=== PATIENT | female | born 1980 | race Caucasian/White ===

== ENCOUNTER 2016-08-30 11:39 | Day surgery (SDC) | payer MEDICAID ==
[~2016-08-30] VITALS: Ht 152.4 cm; Wt 54.5 kg
[~2016-08-30 11:39] MED LIST: ACET-1757 PO; DOCU-30 PO; FOLI0.8T2 PO; IBUP-1222 PO; MULT-658 PO; ONDA4TAB10 PO; OXYC-302 PO; PROM12.55 PO; iron PO
[2016-08-30 12:08] VITALS: BP 120/87
[2016-08-30] MEDS ORDERED: OXYTOCIN 10 UNITS/ML, 1ML ONE (13:00)
[2016-08-30] MEDS ORDERED: MISOPROSTOL 200 MCG TABLET ONE (13:00)
[2016-08-30] MEDS ORDERED: BUPIVACAINE/PF-EPI 0.25% 1:200K ONE (13:00)
[2016-08-30] MEDS ORDERED: SILVER NITRATE STICK TP ONE (13:00)
[2016-08-30] MEDS ORDERED: METHYLERGONOVINE 0.2 MG/ML IM ONE (13:00)
[2016-08-30] MEDS ORDERED: FENTANYL PF 100 MCG/2ML ONE ×2 (13:47→14:36)
[2016-08-30] MEDS ORDERED: MIDAZOLAM 1 MG/ML, 2ML ONE (13:48)
[2016-08-30] MEDS ORDERED: PROPOFOL 10 MG/ML, 20ML ONE (13:54)
[2016-08-30] MEDS ORDERED: MEPERIDINE/PF 25MG/0.5ML IVPush PRN (14:30)
[2016-08-30] MEDS ORDERED: ONDANSETRON 2MG/ML, 2ML IVPush PRN (14:30)
[2016-08-30] MEDS ORDERED: MIDAZOLAM 1 MG/ML, 2ML IV PRN (14:30)
[2016-08-30] MEDS ORDERED: hydrALAzine 20 MG/ML, 1ML IV PRN (14:30)
[2016-08-30] MEDS ORDERED: OXYcodone 5 MG/5 ML ORAL.SOL UDC PO PRN (14:30)
[2016-08-30] MEDS ORDERED: PROMETHAZINE 25 MG/ML, 1ML IV PRN (14:30)
[2016-08-30] MEDS ORDERED: LABETALOL 5MG/ML, 20ML IV PRN (14:30)
[2016-08-30] MEDS ORDERED: HYDROmorphone 1 MG/ML, 1ML IV PRN (14:30)
[2016-08-30] MEDS ORDERED: PLEASE ENTER HEIGHT AND WEIGHT MC SCH (14:30)
[2016-08-30] MEDS ORDERED: OXYcodone 5 MG/5 ML ORAL.SOL UDC ONE (14:36)
[2016-08-30] MEDS: FENTANYL PF 100 MCG/2ML IV PRN ×2 (14:45→14:54)
[2016-08-30 15:26] VITALS: BP 103/68
[2016-08-30] MEDS ORDERED: FENTANYL PF 100 MCG/2ML IV ONE (16:00)
[2016-08-30] MEDS ORDERED: ONDANSETRON 2MG/ML, 2ML IVPush ONE (16:00)
[2016-08-30] MEDS ORDERED: PROMETHAZINE 25 MG/ML, 1ML IM ONE (16:30)
[2016-08-30 19:16] VITALS: BP 95/61
[2016-08-30 19:59] VITALS: BP 99/66
== END 2016-08-30 20:30 | disposition home or self-care (01) ==
LOC: OR 11:39 → 4NOR 11:55 → OR 20:30
PROVIDERS: ATTEND Obstetrics & Gynecology
DX: O02.1 Missed abortion (principal); E21.3 Hyperparathyroidism, unspecified; Z87.442 Personal history of urinary calculi; G89.29 Other chronic pain; R07.81 Pleurodynia; Z93.6 Other artificial openings of urinary tract status; Z3A.01 Less than 8 weeks gestation of pregnancy
CPT/HCPCS: 36415; 59820; 86850; 86900; 86922; 87491; 87591; 88305; J2250; J2405; J2550; J2704; J2790; J3010; 86923; J2210; J2590

== ENCOUNTER 2016-09-01 09:18 | Emergency (ER) | payer MEDICAID ==
[~2016-09-01] VITALS: Ht 165.1 cm; Wt 55.0 kg
[2016-09-01] MEDS ORDERED: SODIUM CHLORIDE FLUSH 10ML SYR IVF ONE (10:00)
[2016-09-01] MEDS ORDERED: ONDANSETRON 2MG/ML, 2ML IVPush ONE (10:00)
[2016-09-01] MEDS ORDERED: SODIUM CHLORIDE 0.9% 1,000ML IVBOLUS ONE (10:00)
[2016-09-01] MEDS ORDERED: HYDROmorphone 1 MG/ML, 1ML ONE ×3 (10:15→11:39)
[2016-09-01] MEDS ORDERED: ONDANSETRON 2MG/ML, 2ML ONE (10:15)
[2016-09-01] MEDS: HYDROmorphone 1 MG/ML, 1ML IVPush PRN ×2 (10:19→10:48)
[2016-09-01 11:04] LABS: ASPARTATE AMINO TRANSFERASE 23 U/L (15-37); BLOOD UREA NITROGEN 10 mg/dL (7-18)
[2016-09-01] MEDS ORDERED: HYDROmorphone 2 MG/ML, 1ML IVPush ONE (12:00)
[2016-09-01 12:42] VITALS: BP 100/58
[2016-09-01] MEDS ORDERED: METRONIDAZOLE PMX 500MG/100ML 100 ML ONE (12:43)
[2016-09-01] MEDS ORDERED: METRONIDAZOLE PMX 500MG/100ML 100 ML IV ONE (13:00)
[2016-09-01] MEDS ORDERED: HYDROcodone/APAP 5/325 TABLET ONE (13:57)
[2016-09-01] MEDS ORDERED: HYDROcodone/APAP 5/325 TABLET PO ONE (14:00)
[2016-09-01] MEDS ORDERED: ONDANSETRON ODT 8 MG ONE (14:10)
[2016-09-01] MEDS ORDERED: ONDANSETRON ODT 8 MG PO ONE (14:30)
== END 2016-09-01 14:17 | disposition home or self-care (01) ==
LOC: ED 12:36
DX: R10.2 Pelvic and perineal pain (principal); F17.200 Nicotine dependence, unspecified, uncomplicated; Z87.442 Personal history of urinary calculi; Z93.6 Other artificial openings of urinary tract status; Z96.0 Presence of urogenital implants; Z88.6 Allergy status to analgesic agent
CPT/HCPCS: 36415; 51701; 74177; 80053; 81001; 83605; 85025; 85610; 87040; 87086; 96361; 96365; 96366; 96375; 96376; 99285; J1170; J2405; J7030; Q0162; P9612

== ENCOUNTER 2016-09-07 08:59 | Emergency (ER) | payer MEDICAID ==
[~2016-09-07] VITALS: Ht 152.4 cm; Wt 53.0 kg
[2016-09-07] MEDS ORDERED: SODIUM CHLORIDE 0.9% 1,000 ML IV ONE (09:25)
[2016-09-07] MEDS ORDERED: SODIUM CHLORIDE 0.9% 1,000ML IVBOLUS ONE (09:30)
[2016-09-07] MEDS ORDERED: ONDANSETRON 2MG/ML, 2ML IVPush ONE (09:30)
[2016-09-07] MEDS ORDERED: SODIUM CHLORIDE FLUSH 10ML SYR IVF ONE (09:30)
[2016-09-07] MEDS ORDERED: ONDANSETRON 2MG/ML, 2ML ONE (10:08)
[2016-09-07 10:28] LABS: ASPARTATE AMINO TRANSFERASE 36 U/L (15-37); BLOOD UREA NITROGEN 14 mg/dL (7-18)
[2016-09-07 11:07] VITALS: BP 109/77
== END 2016-09-07 11:23 | disposition home or self-care (01) ==
LOC: ED 09:27
DX: N30.00 Acute cystitis without hematuria (principal); E86.0 Dehydration; F17.210 Nicotine dependence, cigarettes, uncomplicated
CPT/HCPCS: 36415; 74020; 80053; 81001; 83690; 85025; 87086; 96361; 96374; 99285; J2405; J7030

== ENCOUNTER → 2017-08-27 | Outpatient (CLI) | payer MEDICAID ==
[~2017-08-27] VITALS: Ht 152.4 cm; Wt 69.8 kg
[~2017-08-27] MED LIST changes: +BUPIVACAINE/PF 0.25% ONE; +DOCU-131 PO; -DOCU-30 PO; +EPINEPHRINE 1 MG/ML, 1ML ONE; +FENTANYL PF 250 MCG/5ML ONE; +LACTATED RINGERS 1,000 ML IV SCH; +LIDOCAINE-MPF 1%, 2ML INFIL ONE; +LIDOCAINE-MPF 1%, 2ML ONE; +MIDAZOLAM 1 MG/ML, 2ML ONE; +NONE PER PT
[2017-08-27 06:50] VITALS: BP 128/82
[2017-08-27 07:25] LABS: HCG UR SG 1.029 (1.003-1.030)
== END | disposition home or self-care (01) ==
LOC: OUT 06:04 → EDSTATUS 08:00
PROVIDERS: ATTEND Specialist
DX: Z30.2 Encounter for sterilization (principal); Z53.09 Procedure and treatment not carried out because of other contraindication; Z32.01 Encounter for pregnancy test, result positive; Z88.6 Allergy status to analgesic agent; Z87.442 Personal history of urinary calculi; Z87.891 Personal history of nicotine dependence
CPT/HCPCS: 36415; 81025; 84703; J7120; J0171; J2250; J3010; J3490

== ENCOUNTER 2017-09-03 10:29 | Day surgery (SDC) | payer MEDICAID ==
[~2017-09-03] VITALS: Ht 152.4 cm; Wt 53.6 kg
[~2017-09-03 10:29] MED LIST changes: -BUPIVACAINE/PF 0.25% ONE; -EPINEPHRINE 1 MG/ML, 1ML ONE; -FENTANYL PF 250 MCG/5ML ONE; -LACTATED RINGERS 1,000 ML IV SCH; -LIDOCAINE-MPF 1%, 2ML INFIL ONE; -LIDOCAINE-MPF 1%, 2ML ONE; -MIDAZOLAM 1 MG/ML, 2ML ONE
[2017-09-03 11:00] VITALS: BP 113/83
[2017-09-03] MEDS ORDERED: LIDOCAINE-MPF 1%, 2ML ONE (11:09)
[2017-09-03 11:17] LABS: HCG UR SG > 1.045 (1.003-1.030)
[2017-09-03] MEDS ORDERED: LACTATED RINGERS 1,000 ML IV SCH (11:23)
[2017-09-03] MEDS ORDERED: MIDAZOLAM 1 MG/ML, 2ML ONE ×2 (11:32→13:16)
[2017-09-03] MEDS ORDERED: FENTANYL PF 250 MCG/5ML ONE (11:32)
[2017-09-03] MEDS ORDERED: BUPIVACAINE 0.25% ONE (12:02)
[2017-09-03] MEDS ORDERED: EPINEPHRINE 1 MG/ML, 1ML ONE (12:02)
[2017-09-03] MEDS ORDERED: LABETALOL 5MG/ML, 20ML IV PRN (13:00)
[2017-09-03] MEDS ORDERED: FENTANYL PF 100 MCG/2ML IV PRN (13:00)
[2017-09-03] MEDS ORDERED: ONDANSETRON 2MG/ML, 2ML IVPush PRN (13:00)
[2017-09-03] MEDS ORDERED: hydrALAzine 20 MG/ML, 1ML IV PRN (13:00)
[2017-09-03] MEDS ORDERED: OXYcodone 5 MG/5 ML ORAL.SOL UDC PO PRN (13:00)
[2017-09-03] MEDS ORDERED: HYDROmorphone 1 MG/ML, 1ML IV PRN (13:00)
[2017-09-03] MEDS ORDERED: METOCLOPRAMIDE 5 MG/ML, 2ML IV PRN (13:00)
[2017-09-03] MEDS ORDERED: ACETAMINOPHEN 325 MG TABLET PO PRN (13:00)
[2017-09-03] MEDS ORDERED: OXYcodone 5 MG/5 ML ORAL.SOL UDC ONE (13:07)
[2017-09-03] MEDS ORDERED: FENTANYL PF 100 MCG/2ML ONE (13:07)
[2017-09-03] MEDS ORDERED: MIDAZOLAM 1 MG/ML, 5ML ONE ×2 (13:16→14:13)
[2017-09-03] MEDS ORDERED: ACETAMINOPHEN 650 MG/20.3 ML UDC ONE (13:28)
[2017-09-03] MEDS ORDERED: MIDAZOLAM 1 MG/ML, 2ML IV PRN (13:30)
[2017-09-03] MEDS ORDERED: HYDROcodone/APAP 7.5-325MG/15ML UDC PO PRN (15:00)
[2017-09-03] MEDS ORDERED: HYDROcodone/APAP 7.5-325MG/15ML UDC ONE (15:00)
[2017-09-03] MEDS ORDERED: SUCCINYLCHOLINE 20 MG/ML, 10ML ONE (15:33)
[2017-09-03] MEDS ORDERED: ROCURONIUM 10 MG/ML,10ML ONE (15:33)
[2017-09-03] MEDS ORDERED: KETOROLAC 30 MG/1 ML ONE (15:33)
[2017-09-03] MEDS ORDERED: DEXAMETHASONE 4 MG/ML, 1ML ONE (15:33)
[2017-09-03] MEDS ORDERED: PROPOFOL 10 MG/ML, 20ML ONE (15:33)
[2017-09-03] MEDS ORDERED: ONDANSETRON 2MG/ML, 2ML ONE (15:33)
[2017-09-03] MEDS ORDERED: GLYCOPYRROLATE 0.2MG/1ML, 5ML ONE (15:33)
[2017-09-03] MEDS ORDERED: NEOSTIGMINE 1 MG/ML, 10ML ONE (15:33)
== END 2017-09-03 15:50 | disposition home or self-care (01) ==
LOC: OUT 10:29
PROVIDERS: ATTEND Specialist
DX: Z30.2 Encounter for sterilization (principal)
CPT/HCPCS: 58661; 81025; 88302; J0171; J0330; J1100; J1885; J2250; J2405; J2704; J2710; J3010; J3490; J7120

== ENCOUNTER 2018-10-25 10:13 | Emergency (ER) | payer MEDICAID ==
[~2018-10-25] VITALS: Ht 152.4 cm; Wt 54.0 kg
[2018-10-25 10:17] VITALS: BP 140/96
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
[2018-10-25] MEDS ORDERED: LORazepam 1MG TABLET PO ONE (10:30)
[2018-10-25] MEDS ORDERED: LORazepam 1MG TABLET ONE (10:31)
--- NOTE | 2018-10-25 10:36 | NUR ---
PT MEDICATED PER EMAR. PT TOLERATED WELL.
--- NOTE | 2018-10-25 11:01 | NUR ---
PT IN XRAY NOW.
--- NOTE | 2018-10-25 11:31 | NUR ---
PT BACK TO ROOM.
[2018-10-25] MEDS ORDERED: HYDROcodone/APAP 5/325 TABLET ONE (11:35)
--- NOTE | 2018-10-25 11:38 | NUR ---
PT MEDICATED PER EMAR FOR PAIN. PT TOLERATED WELL.
[2018-10-25] MEDS ORDERED: HYDROcodone/APAP 5/325 TABLET PO ONE (12:00)
--- NOTE | 2018-10-25 12:35 | NUR ---
PT GIVEN DC INSTRUCTIONS. PT AMB TO DC WITH STEADY GAIT. NO ACUTE DISTRESS AT DC.
== END 2018-10-25 12:36 | disposition home or self-care (01) ==
LOC: ED 12:30
DX: S16.1XXA Strain of muscle, fascia and tendon at neck level, initial encounter (principal); S29.012A Strain of muscle and tendon of back wall of thorax, initial encounter; S70.01XA Contusion of right hip, initial encounter; S80.01XA Contusion of right knee, initial encounter; F17.200 Nicotine dependence, unspecified, uncomplicated; Y04.8XXA Assault by other bodily force, initial encounter; Y93.89 Activity, other specified; Y92.009 Unspecified place in unspecified non-institutional (private) residence as the place of occurrence of the external cause; Y99.8 Other external cause status
CPT/HCPCS: 72050; 72072; 99283

== ENCOUNTER 2019-10-10 21:30 | Emergency (ER) | payer MEDICAID ==
[~2019-10-10] VITALS: Ht 152.4 cm; Wt 53.8 kg
[~2019-10-10 21:30] MED LIST changes: -ACET-1757 PO; +ACET-2065 PO; -PROM12.55 PO; +PROM12.57 PO
[2019-10-10] MEDS ORDERED: ACETAMINOPHEN 500 MG TABLET PO ONE (22:00)
[2019-10-10] MEDS ORDERED: ACETAMINOPHEN 500 MG TABLET ONE (22:15)
[2019-10-10 22:33] LABS: RAPID INFLUENZA A Negative (Negative); RAPID INFLUENZA B Negative (Negative)
[2019-10-10 22:45] LABS: BASOPHILS # (AUTO) 0.06 x10^3/uL (0-0.1); BASOPHILS % (AUTO) 1 % (0-1); EOSINOPHILS % (AUTO) 4 % (1-7); LYMPHOCYTES # (AUTO) 2.45 x10^3/uL (1-3.4); LYMPHOCYTES % (AUTO) 31 % (22-44); MD NO; MEAN CORPUSCULAR HEMOGLOBIN 30.3 pg (27.0-34.8); MEAN CORPUSCULAR HGB CONC 33.5 g/dL (32.4-35.8); MEAN CORPUSCULAR VOLUME 90.4 fL (80-100); MEAN PLATELET VOLUME 7.4 fL (7.4-10.4); MONOCYTES # (AUTO) 0.74 x10^3/uL (0.2-0.8); MONOCYTES % (AUTO) 9 % (2-9); NEUTROPHILS # (AUTO) 4.43 x10^3/uL (1.8-6.8); NEUTROPHILS % (AUTO) 56 % (42-75); PLATELET COUNT 317 x10^3/uL (130-400); RED BLOOD COUNT 3.99 x10^6/uL (3.82-5.3); RED CELL DISTRIBUTION WIDTH 13.4 % (9.6-15.2)
[2019-10-10 22:53] LABS: ALBUMIN 3.5 g/dL (3.4-5.0); ANION GAP 6 mmol/L (5-15); CALCIUM 8.6 mg/dL (8.5-10.1); CHLORIDE 110 mmol/L (98-107); CREATININE 0.72 mg/dL (0.55-1.02)
[2019-10-10 23:52] VITALS: BP 97/69
== END 2019-10-11 00:44 | disposition home or self-care (01) ==
LOC: ED 10-11
DX: B34.9 Viral infection, unspecified (principal); Z20.828 Contact with and (suspected) exposure to other viral communicable diseases; M79.10 Myalgia, unspecified site; I10 Essential (primary) hypertension; E11.9 Type 2 diabetes mellitus without complications; F17.210 Nicotine dependence, cigarettes, uncomplicated
CPT/HCPCS: 36415; 71045; 80048; 82040; 85025; 87400; 99284; 99406; U0001

== ENCOUNTER 2020-02-20 10:02 | Emergency (ER) | payer MEDICAID ==
[~2020-02-20] VITALS: Ht 152.4 cm; Wt 55.1 kg
[2020-02-20] MEDS ORDERED: SODIUM CHLORIDE 0.9% 1,000ML IVBOLUS ONE (10:30)
[2020-02-20] MEDS ORDERED: DIPHENHYDRAMINE 50 MG/ML, 1ML IVPush ONE (10:30)
[2020-02-20] MEDS ORDERED: ONDANSETRON 2MG/ML, 2ML IVPush ONE (10:30)
[2020-02-20] MEDS ORDERED: KETOROLAC 30 MG/1 ML IVPush ONE (10:30)
[2020-02-20] MEDS ORDERED: ONDANSETRON 2MG/ML, 2ML ONE (10:54)
[2020-02-20] MEDS ORDERED: DIPHENHYDRAMINE 50 MG/ML, 1ML ONE (10:54)
--- NOTE | 2020-02-20 11:06 | NUR ---
body aches lutz joint pain and congestion. medicated as noted on mar
[2020-02-20] MEDS ORDERED: HYDROcodone/APAP 5/325 TABLET ONE (11:17)
[2020-02-20] MEDS ORDERED: HYDROcodone/APAP 5/325 TABLET PO ONE (11:30)
--- NOTE | 2020-02-20 11:55 | NUR ---
PT RESTING WITH EYES CLOSED WHILE IV BOLUS INFUSING
[2020-02-20 12:35] VITALS: BP 105/60
--- NOTE | 2020-02-20 12:36 | NUR ---
PT STATES FEELING BETTER SINCE MEDICATED. DISCUSSED NEED TO ISOLATE UNTIL NOTIFIED WHETHER SHE HAS COVID AND ENCOURAGED PT TO REST AND DRINK FLUIDS. RIDE ON THE WAY AND AMBULATED FROM ER STEADY GAIT.
== END 2020-02-20 12:41 | disposition home or self-care (01) ==
LOC: ED 10:40
DX: U07.1 COVID-19 (principal); R51.9 Headache, unspecified; I10 Essential (primary) hypertension; E11.9 Type 2 diabetes mellitus without complications; F17.210 Nicotine dependence, cigarettes, uncomplicated
CPT/HCPCS: 36415; 71045; 87635; 96361; 96374; 96375; 99284; 99406; J1200; J2405; J7030

== ENCOUNTER 2020-02-21 21:51 | Emergency (ER) | payer MEDICAID ==
[~2020-02-21] VITALS: Ht 172.7 cm; Wt 55.7 kg
[2020-02-21 22:59] LABS: ALBUMIN 3.8 g/dL (3.4-5.0); ANION GAP 7 mmol/L (5-15); CALCIUM 9.1 mg/dL (8.5-10.1); CHLORIDE 107 mmol/L (98-107)
[2020-02-21 23:00] LABS: BASOPHILS % (AUTO) 1 % (0-1); EOSINOPHILS % (AUTO) 3 % (1-7); LYMPHOCYTES % (AUTO) 37 % (22-44); MEAN CORPUSCULAR HEMOGLOBIN 30.1 pg (27.0-34.8); MEAN CORPUSCULAR HGB CONC 33.3 g/dL (32.4-35.8); MEAN PLATELET VOLUME 7.1 fL (7.4-10.4); MONOCYTES % (AUTO) 18 % (2-9); NEUTROPHILS % (AUTO) 41 % (42-75); PLATELET COUNT 312 x10^3/uL (130-400); RED BLOOD COUNT 4.53 x10^6/uL (3.82-5.3); RED CELL DISTRIBUTION WIDTH 14.4 % (9.6-15.2)
[2020-02-21 23:03] LABS: ALANINE AMINOTRANSFERASE 24 U/L (12-78); ALKALINE PHOSPHATASE 75 U/L (45-117); BILIRUBIN,TOTAL 0.1 mg/dL (0.2-1.0); CREATININE 0.74 mg/dL (0.55-1.02)
[2020-02-21 23:13] LABS: MD NO
--- NOTE | 2020-02-21 23:17 | NUR ---
First contact with patient: patient presents to ER c/o muscle pains. Patient had a back ache starting Thursday and was seen at the clinic. She got results back yesterday that she waas COVID+. Today patient states muscle pain is worse along with a DODD and many other symptoms. States she has intermittent cough. Patient is in NAD. Respirations even and unlabored.
[2020-02-21] MEDS ORDERED: DEXAMETHASONE 4 MG/ML, 1ML IM ONE (23:30)
[2020-02-21] MEDS ORDERED: DEXAMETHASONE 4 MG/ML, 5ML ONE (23:45)
[2020-02-22 00:30] VITALS: BP 108/75
== END 2020-02-22 00:38 | disposition home or self-care (01) ==
LOC: ED 23:14
DX: R50.9 Fever, unspecified (principal); R05 Cough; R09.81 Nasal congestion; R06.02 Shortness of breath; E11.9 Type 2 diabetes mellitus without complications; I10 Essential (primary) hypertension
CPT/HCPCS: 36415; 71045; 80053; 85025; 96372; 99284; J1100

== ENCOUNTER 2020-04-12 16:41 | Emergency (ER) | payer MEDICAID ==
[~2020-04-12] VITALS: Ht 152.4 cm; Wt 55.4 kg
[2020-04-12 17:40] LABS: BASOPHILS % (AUTO) 1 % (0-1); EOSINOPHILS % (AUTO) 1 % (1-7); LYMPHOCYTES % (AUTO) 18 % (22-44); MEAN CORPUSCULAR HEMOGLOBIN 30.9 pg (27.0-34.8); MEAN CORPUSCULAR HGB CONC 34.5 g/dL (32.4-35.8); MEAN PLATELET VOLUME 7.2 fL (7.4-10.4); MONOCYTES % (AUTO) 9 % (2-9); NEUTROPHILS % (AUTO) 72 % (42-75); PLATELET COUNT 385 x10^3/uL (130-400); RED BLOOD COUNT 4.49 x10^6/uL (3.82-5.3)
[2020-04-12 17:44] LABS: ALANINE AMINOTRANSFERASE 23 U/L (12-78); ALBUMIN 4.4 g/dL (3.4-5.0); CALCIUM 8.6 mg/dL (8.5-10.1); CREATININE 0.76 mg/dL (0.55-1.02)
[2020-04-12 17:45] LABS: MD NO
[2020-04-12 17:48] LABS: ALKALINE PHOSPHATASE 81 U/L (45-117); BILIRUBIN,TOTAL 0.4 mg/dL (0.2-1.0); CHLORIDE 105 mmol/L (98-107); TOTAL PROTEIN 8.6 g/dL (6.4-8.2); TROPONIN I < 0.015 ng/mL (0.000-0.045)
[2020-04-12 18:10] LABS: ANION GAP 10 mmol/L (5-15)
--- NOTE | 2020-04-12 19:36 | NUR ---
PT BACK TO THIS RN'S ROOM AT THIS TIME. PT PLACED ON ECG/SPO2/BP MONITORING. WCTM.
--- NOTE | 2020-04-12 19:52 | NUR ---
PT REPORTS COMING INTO ED [facility] FOR CP AND NAUSEA/VOMITTING. PT STATES SHE WOKE UP AND SUDDENLY FELT EXTREMELY POORLY. STATES HER CHEST HAS PRESSURE, STAES ITS A 10/10 AND THE NAUSEA IS TERRIBLE. PT REPORTS CONSTANTLY DRY HEAVING AT THIS TIME. PT RESTING ON GURNEY, SITTING UP, NAD, CALL LIGHT ON LAP, BED IN LOWEST, WCTM. WAITING FOR ADDITIONAL ORDERS.
[2020-04-12] MEDS ORDERED: ONDANSETRON ODT 4 MG PO ONE (20:00)
[2020-04-12] MEDS ORDERED: HYDROcodone/APAP 5/325 TABLET PO ONE (20:00)
[2020-04-12] MEDS ORDERED: ONDANSETRON ODT 4 MG ONE (20:02)
[2020-04-12] MEDS ORDERED: HYDROcodone/APAP 5/325 TABLET ONE (20:02)
--- NOTE | 2020-04-12 20:08 | NUR ---
pt medicated per jul, resting on gurney, nad, appears comfortable, denies additional needs at this time, wctm. waiting for dispo
[2020-04-12 20:13] VITALS: BP 116/66
--- NOTE | 2020-04-12 20:40 | NUR ---
Patient given discharge instructions and they have confirmed that they understand the instructions. Patient ambulatory with steady gait. NAD, DENIES ADDITIONAL QUESTIONS OR NEEDS AT THIS TIME. NO PERSONAL BELONGINGS LEFT IN ROOM AT THE TIME OF DC.
== END 2020-04-12 20:42 | disposition home or self-care (01) ==
LOC: ED 17:11
DX: J15.9 Unspecified bacterial pneumonia (principal); Z20.828 Contact with and (suspected) exposure to other viral communicable diseases; R07.89 Other chest pain; R11.2 Nausea with vomiting, unspecified; R50.9 Fever, unspecified; R00.0 Tachycardia, unspecified; Z87.891 Personal history of nicotine dependence
CPT/HCPCS: 36415; 71045; 80053; 84484; 85025; 87635; 93005; 99285; Q0162

== ENCOUNTER 2020-05-13 18:41 | Emergency (ER) | payer MEDICAID ==
[~2020-05-13] VITALS: Ht 152.4 cm; Wt 58.4 kg
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
[2020-05-13] MEDS ORDERED: HYDROmorphone 1 MG/ML, 1ML INJ ONE ×2 (19:16→21:23)
[2020-05-13] MEDS ORDERED: ONDANSETRON 2MG/ML, 2ML ONE (19:16)
[2020-05-13 19:19] LABS: BASOPHILS % (AUTO) 0 % (0-1); EOSINOPHILS % (AUTO) 2 % (1-7); LYMPHOCYTES % (AUTO) 18 % (22-44); MEAN CORPUSCULAR HEMOGLOBIN 30.1 pg (27.0-34.8); MEAN CORPUSCULAR HGB CONC 33.4 g/dL (32.4-35.8); MEAN PLATELET VOLUME 6.7 fL (7.4-10.4); MONOCYTES % (AUTO) 7 % (2-9); NEUTROPHILS % (AUTO) 73 % (42-75); PLATELET COUNT 389 x10^3/uL (130-400); RED BLOOD COUNT 4.37 x10^6/uL (3.82-5.3)
[2020-05-13] MEDS ORDERED: SODIUM CHLORIDE FLUSH 10ML SYR IVF ONE (19:30)
[2020-05-13] MEDS ORDERED: ONDANSETRON 2MG/ML, 2ML IVPush ONE (19:30)
[2020-05-13 19:32] LABS: ALANINE AMINOTRANSFERASE 25 U/L (12-78); ALBUMIN 4.1 g/dL (3.4-5.0); ANION GAP 10 mmol/L (5-15); CALCIUM 8.5 mg/dL (8.5-10.1); CHLORIDE 111 mmol/L (98-107); CREATININE 0.75 mg/dL (0.55-1.02)
[2020-05-13 19:36] LABS: ALKALINE PHOSPHATASE 78 U/L (45-117); BILIRUBIN,TOTAL 0.4 mg/dL (0.2-1.0); TOTAL PROTEIN 7.9 g/dL (6.4-8.2)
[2020-05-13] MEDS: HYDROmorphone 2 MG/ML, 1ML IVPush PRN ×2 (19:44→21:28)
[2020-05-13 19:54] LABS: MD NO
[2020-05-13] MEDS ORDERED: KETOROLAC 30 MG/1 ML IVPush ONE (20:00)
[2020-05-13 20:12] LABS: MICROSCOPIC NOT IND
[2020-05-13 20:26] LABS: AMPHETAMINE SCREEN, URINE Negative (Negative); BARBITURATE SCREEN, URINE Negative (Negative); BENZODIAZEPINE SCREEN, URINE Negative (Negative); CANNABINOID SCREEN, URINE Positive (Negative); COCAINE SCREEN, URINE Negative (Negative); METHADONE SCREEN, URINE Negative (Negative); OPIATE SCREEN, URINE Negative (Negative)
[2020-05-13] MEDS ORDERED: KETOROLAC 30 MG/1 ML ONE (20:28)
[2020-05-13] MEDS ORDERED: SODIUM CHLORIDE 0.9% 1,000ML IVBOLUS ONE (20:30)
--- NOTE | 2020-05-13 20:33 | NUR ---
pt states ketorolac is not a true allergy, urologist told her not to take ketorolac becuase of kidney function. ERP Dr sinclair aware
--- NOTE | 2020-05-13 20:44 | NUR ---
PT VERY ANXIOUS, USING CALL LIGHT FREQUENTLY TO USE RESTROOM TO EITHER THROW UP OR FEEL LIKE SHE IS GOING TO HAVE A BM BUT HAS NOT THUS FAR. STATES NOTHING HAS HELPED HER NAUSEA SO FAR.
[2020-05-13] MEDS ORDERED: DIPHENHYDRAMINE 50 MG/ML, 1ML IVPush ONE (21:00)
[2020-05-13] MEDS ORDERED: METOCLOPRAMIDE 5 MG/ML, 2ML IVPush ONE (21:00)
[2020-05-13] MEDS ORDERED: DIPHENHYDRAMINE 50 MG/ML, 1ML ONE (21:23)
[2020-05-13] MEDS ORDERED: METOCLOPRAMIDE 5 MG/ML, 2ML ONE (21:23)
--- NOTE | 2020-05-13 21:30 | NUR ---
pt refused reglan, states it makes her go crazy
[2020-05-13 22:02] VITALS: BP 117/70
== END 2020-05-13 22:04 | disposition home or self-care (01) ==
LOC: ED 20:11
DX: N20.0 Calculus of kidney (principal); R00.0 Tachycardia, unspecified; Z87.891 Personal history of nicotine dependence; Z88.8 Allergy status to other drugs, medicaments and biological substances; Z88.6 Allergy status to analgesic agent
CPT/HCPCS: 36415; 74176; 80053; 80307; 81003; 83690; 84703; 85025; 96361; 96374; 96375; 96376; 99284; J1170; J1200; J1885; J2405; J7030

== ENCOUNTER 2020-07-17 18:21 | Emergency (ER) | payer MEDICAID ==
[~2020-07-17] VITALS: Ht 152.4 cm; Wt 58.4 kg
[~2020-07-17 18:21] MED LIST changes: -FOLI0.8T2 PO; +FOLI0.8T5 PO; -OXYC-302 PO; +OXYC1TAB14 PO
[2020-07-17] MEDS ORDERED: HYDROmorphone 1 MG/ML, 1ML INJ ONE ×2 (19:06→19:54)
[2020-07-17] MEDS ORDERED: ONDANSETRON 2MG/ML, 2ML ONE ×2 (19:07→20:56)
[2020-07-17 19:21] LABS: BASOPHILS % (AUTO) 1 % (0-1); EOSINOPHILS % (AUTO) 1 % (1-7); LYMPHOCYTES % (AUTO) 14 % (22-44); MEAN CORPUSCULAR HEMOGLOBIN 30.4 pg (27.0-34.8); MEAN CORPUSCULAR HGB CONC 33.6 g/dL (32.4-35.8); MEAN PLATELET VOLUME 7.6 fL (7.4-10.4); MONOCYTES % (AUTO) 6 % (2-9); NEUTROPHILS % (AUTO) 78 % (42-75); PLATELET COUNT 362 x10^3/uL (130-400); RED CELL DISTRIBUTION WIDTH 14.2 % (9.6-15.2)
[2020-07-17 19:22] LABS: MD NO
[2020-07-17 19:30] LABS: ANION GAP 9 mmol/L (5-15); CALCIUM 8.8 mg/dL (8.5-10.1); CHLORIDE 110 mmol/L (98-107)
[2020-07-17] MEDS ORDERED: ONDANSETRON 2MG/ML, 2ML IVPush ONE ×2 (19:30→21:00)
[2020-07-17] MEDS ORDERED: HYDROmorphone 1 MG/ML, 1ML INJ IV ONE ×2 (19:30→20:00)
[2020-07-17 19:42] LABS: HCG UR SG 1.015 (1.003-1.030); MICROSCOPIC INDICATED
--- NOTE | 2020-07-17 19:52 | NUR ---
PT IN BED WITH NO SIGNS OR SYMPTOMS OF ACUTE DISTRESS NOTED RESPIRATIONS EVEN AND UNLABORED. PT ON BREASTFEEDING PROGRAM COORDINATOR WITH BED RAILS UP BILATERALLY AND CALL LIGHT WITHIN REACH. PT STATES SHE DOESNT WEAR HOME O2, STATES SHE USED TO BUT SHE DOESNT ANYMORE, DENIES HAVING O2 EQUIPMENT AT HOME. PT TOLD PROVIDER THAT SHE DOESNT TAKE MEDICATIONS FOR HER BLOOD PRESSURE THOUGH CORE[facility] AND LISINOPRIL ARE NOTED TO [facility]LD MED REC FOR PT. AWARE.
[2020-07-17] MEDS ORDERED: DIPHENHYDRAMINE 50 MG CAPSULE ONE (20:09)
--- NOTE | 2020-07-17 20:18 | NUR ---
Report from ERIKA Alba.
--- NOTE | 2020-07-17 20:23 | NUR ---
Pt to CT.
[2020-07-17] MEDS ORDERED: DIPHENHYDRAMINE 25 MG CAPSULE PO ONE (20:30)
[2020-07-17] MEDS ORDERED: CEFTRIAXONE PMX 1GM/50ML 50 ML ONE (20:56)
[2020-07-17] MEDS ORDERED: CEFTRIAXONE PMX 1GM/50ML 50 ML IV ONE (21:00)
[2020-07-17] MEDS ORDERED: SODIUM CHLORIDE 0.9% 1,000ML IVBOLUS ONE (21:00)
--- NOTE | 2020-07-17 21:50 | NUR ---
Rocephin infusion complete.
--- NOTE | 2020-07-17 22:07 | NUR ---
Dr. Vale at bedside, explaining results of labs and CT to pt which show she has an ovarian cyst and a UTI. Provider and pt discussed plan for pt to be discharged home with antibiotics, nauseau and pain meds. Pt understands and agrees with this plan. Pt requesting a dose of pain meds before she leaves, ordered by provider. Will medicate, NS fluids still infusing then will DC.
[2020-07-17] MEDS ORDERED: HYDROcodone/APAP 5/325 TABLET ONE (22:27)
[2020-07-17] MEDS ORDERED: HYDROcodone/APAP 5/325 TABLET PO ONE (22:30)
[2020-07-17 22:31] VITALS: BP 117/74
--- NOTE | 2020-07-17 22:40 | NUR ---
IV removed, catheter intact, hemostasis achieved, dressing applied.
== END 2020-07-17 22:41 | disposition home or self-care (01) ==
LOC: ED 19:01
DX: A41.9 Sepsis, unspecified organism (principal); N10 Acute pyelonephritis; F17.210 Nicotine dependence, cigarettes, uncomplicated; I10 Essential (primary) hypertension; Z88.5 Allergy status to narcotic agent; Z88.6 Allergy status to analgesic agent; Z88.8 Allergy status to other drugs, medicaments and biological substances
CPT/HCPCS: 36415; 74176; 80048; 81001; 81025; 85025; 87040; 87077; 87086; 87186; 96365; 96375; 96376; 99291; 99406; J0696; J1170; J2405; J7030; Q0163; 96361

== ENCOUNTER 2020-09-07 20:09 | Emergency (ER) | payer MEDICAID ==
[~2020-09-07] VITALS: Ht 152.4 cm; Wt 56.8 kg
[2020-09-07] MEDS ORDERED: METHOCARBAMOL 750 MG TABLET PO ONE (20:30)
[2020-09-07] MEDS ORDERED: ONDANSETRON ODT 4 MG PO ONE (20:30)
[2020-09-07] MEDS ORDERED: HYDROcodone/APAP 5/325 TABLET PO ONE (20:30)
--- NOTE | 2020-09-07 20:35 | NUR ---
PT. HAS C/O FEELING A POP ON HER LEFT RIB CAGE WITH SEVERE PAIN. PT. REPORTS NAUSEA AND DIZZINESS AFTER. Breath sound audible to bases bilaterally, pox 98%
[2020-09-07] MEDS ORDERED: METHOCARBAMOL 750 MG TABLET ONE (20:48)
[2020-09-07] MEDS ORDERED: ONDANSETRON ODT 4 MG ONE (20:48)
[2020-09-07] MEDS ORDERED: HYDROcodone/APAP 5/325 TABLET ONE (20:49)
--- NOTE | 2020-09-07 20:55 | NUR ---
medicated per emar for 02/17 pain/nausea
[2020-09-07 21:27] VITALS: BP 127/90
--- NOTE | 2020-09-07 21:27 | NUR ---
PAIN IMPROVED TO 2/10 PATIENT DISCHARGED VIA UBER
== END 2020-09-07 21:29 | disposition home or self-care (01) ==
LOC: ED 21:01
DX: R07.89 Other chest pain (principal); R11.2 Nausea with vomiting, unspecified; I10 Essential (primary) hypertension; E11.9 Type 2 diabetes mellitus without complications
CPT/HCPCS: 71101; 93005; 99284; Q0162